=== PATIENT | male | born 1980 | race African-American/Black ===

== ENCOUNTER 2018-10-26 19:09 | Emergency (ER) | payer OTHER ==
[~2018-10-26] VITALS: Ht 180.3 cm; Wt 65.8 kg
[2018-10-26 19:16] VITALS: BP 116/68
[2018-10-26] MEDS ORDERED: LIDOCAINE VISCOUS 2% UD 15 ML UDC MM ONE (19:30)
[2018-10-26] MEDS ORDERED: DIPHENHYDRAMINE HCL 12.5 MG/5 ML UDC PO ONE (19:30)
[2018-10-26] MEDS ORDERED: MAG HYDROX/AL HYDROX/SIMETH 30 ML UDC PO ONE (19:30)
[2018-10-26] MEDS ORDERED: LIDOCAINE VISCOUS 2% UD 15 ML UDC ONE (19:32)
[2018-10-26] MEDS ORDERED: diphenhydrAMINE HCL ELIX 25 MG/10 ML UDC ONE (19:32)
[2018-10-26] MEDS ORDERED: MAG HYDROX/AL HYDROX/SIMETH 30 ML UDC ONE (19:32)
== END 2018-10-26 19:42 | disposition home or self-care (01) ==
LOC: ER 19:16
DX: R20.8 Other disturbances of skin sensation (principal); J45.909 Unspecified asthma, uncomplicated; F32.9 Major depressive disorder, single episode, unspecified; Z60.2 Problems related to living alone
CPT/HCPCS: Q0163